=== PATIENT | female | born 1995 | race Caucasian/White ===

== ENCOUNTER 2018-01-25 13:18 | Emergency (ER) | payer OTHER ==
[~2018-01-25] VITALS: Ht 162.6 cm; Wt 52.2 kg
[2018-01-25] MEDS ORDERED: TESSALON PERLE100 MG PO (15:02)
[2018-01-25] MEDS ORDERED: ULTRAM 50MG TAB50 MG PO (15:02)
[2018-01-25 15:14] VITALS: BP 121/76
== END 2018-01-25 15:15 | disposition home or self-care (01) ==
LOC: ER 13:18
DX: J20.8 Acute bronchitis due to other specified organisms (principal); B97.89 Other viral agents as the cause of diseases classified elsewhere

== ENCOUNTER 2018-06-14 10:57 | Emergency (ER) | payer OTHER ==
[~2018-06-14] VITALS: Ht 162.6 cm; Wt 52.6 kg
[~2018-06-14 10:57] MED LIST: TESSALON PERLE100 MG PO; ULTRAM 50MG TAB50 MG PO
[2018-06-14 11:43] LABS: HEMOGLOBIN 14.3 gm/dL (12.0-15.0); MCH 31.1 pg (26.0-34.0); MCV 91.5 fL (80.0-100.0); RBC 4.59 mil/uL (4.20-5.00); RDW 12.3 % (10.5-14.5)
[2018-06-14 11:52] LABS: CALCIUM 8.4 mg/dL (8.5-10.1); CREATININE 0.7 mg/dL (0.6-1.0); POTASSIUM 3.5 mmol/L (3.5-5.1)
[2018-06-14 11:58] LABS: ALBUMIN 3.8 g/dL (3.4-5.0); TOTAL BILIRUBIN 0.7 mg/dL (<0.1-1.0); TOTAL PROTEIN 7.1 g/dL (6.4-8.2)
[2018-06-14 12:54] LABS: URINE BILIRUBIN NEGATIVE (Negative); URINE BLOOD 3+ (Negative); URINE CLARITY CLEAR; URINE COLOR YELLOW; URINE GLUCOSE-RANDOM* NEGATIVE (Negative); URINE KETONES NEGATIVE (Negative); URINE LEUKOCYTES-REFLEX NEGATIVE (Negative); URINE NITRITE-REFLEX NEGATIVE (Negative); URINE PROTEIN (DIPSTICK) NEGATIVE (Negative); URINE SPECIFIC GRAVITY 1.025 (1.005-1.035); URINE UROBILINOGEN 0.2 E.U./dl (0.2-1.0)
[2018-06-14 13:02] LABS: CASTS None Seen /LPF (None Seen); SQUAMOUS >10 Many /LPF (0-3)
[2018-06-14 13:03] LABS: BACTERIA-REFLEX 1-9 Few /HPF (None Seen); CRYSTALS None Seen /LPF (None Seen); URINE RBC 0-2 Rare /HPF (0-2); URINE WBC-REFLEX 0-5 Rare /HPF (0-5)
[2018-06-14 13:19] VITALS: BP 107/59
[2018-06-14] MEDS ORDERED: PEPCID AC20 MG PO (13:23)
[2018-06-14] MEDS ORDERED: MOBIC7.5 MG PO (13:23)
--- NOTE | 2018-06-14 17:26 | EKG ---
[address] [address] ELECTROCARDIOGRAM REPORT Name: ANGEL PYLE [id number] ������������������ Admission: 06/14/18 ������������������ Attend Phys: Discharge: 06/14/18 ������������������ Date of : [birth year] Report #: [id number] ����������������������������������������������������������������� [id number] THIS REPORT FOR: //name// [facility] ED Test Date: 2018-06-14 Test Time: 11:43:54 Pat Name: ANGEL PYLE Department: Room: Gender: F [address] Pl Sql Developer: JOSÉ LUIS : 1995 Requested By: Kimberly Parker Order Number: [id number] MD: Zelalem Nelson Measurements Intervals [place] Rate: 64 P: 49 WA: 121 QRS: 59 QRSD: 87 T: 53 QT: 378 QTc: 390 Interpretive Statements Sinus rhythm No significant abnormality No previous ECG available for comparison Electronically Signed On 06-14-2018 17:25:46 CDT by Zelalem Nelson [email or web address] ��������������������������������������������� <ELECTRONICALLY SIGNED> ���������������������������������������� By: Zelalem Nelson MD, [facility] ��������������������������������������������� 06/14/18 1725 1143 1143 Zelalem Nelson MD, FACC /EPI
== END 2018-06-14 13:28 | disposition home or self-care (01) ==
LOC: ER 10:57
PROVIDERS: Physician Assistant
DX: R07.89 Other chest pain (principal); R10.13 Epigastric pain